=== PATIENT | male | born 1940 | race Caucasian/White ===

== ENCOUNTER → 2016-07-06 | Outpatient (CLI) | payer BC ==
[2016-07-06 12:49] LABS: HEMATOCRIT 42.4 % (42-52); MEAN CELL VOLUME 90.2 fL (80-100); MEAN CORPUSCULAR HEMOGLOBIN 31.3 pg (25-34); MEAN CORPUSCULAR HGB CONC 34.7 g/dl (32-36); MEAN PLATELET VOLUME 11.4 fL (7.4-10.4); PLATELET COUNT 198 K/uL (130-400); WHITE BLOOD COUNT 8.43 K/uL (4.8-10.8)
[2016-07-06 13:15] LABS: ALT/SGPT 23 U/L (12-78); BLOOD UREA NITROGEN 21 mg/dl (7-18); BUN/CREATININE RATIO 17.3 (10-20); CARBON DIOXIDE 27 mmol/L (21-32); CHLORIDE 104 mmol/L (98-107); CHOLESTEROL 110 mg/dl (0-200); GLUCOSE 108 mg/dl (70-99); POTASSIUM 3.6 mmol/L (3.5-5.1); SODIUM 141 mmol/L (136-145); TRIGLYCERIDES 135 mg/dl (0-150); VERY LOW DENSITY LIPOPROT CALC 27 mg/dl
[2016-07-06 13:25] LABS: ALB/GLOB RATIO 1.2 (0.9-2); ALKALINE PHOSPHATASE 75 U/L (45-117); AST/SGOT 16 U/L (15-37); CHOLESTEROL/HDL RATIO 2.4; HDL CHOLESTEROL 46 mg/dl; LDL CHOLESTEROL CALCULATED 37 mg/dl
[2016-07-06 13:31] LABS: ESTIMATED AVERAGE GLUCOSE 128 mg/dl; HA1C FLAG Normal (Normal)
== END | disposition home or self-care (01) ==
LOC: C.LABPVFM 09:21
PROVIDERS: ATTEND Family Medicine
DX: M15.4 Erosive (osteo)arthritis (principal); M25.561 Pain in right knee; Z79.899 Other long term (current) drug therapy; I10 Essential (primary) hypertension; E78.5 Hyperlipidemia, unspecified; R73.01 Impaired fasting glucose; H93.12 Tinnitus, left ear; R20.2 Paresthesia of skin

== ENCOUNTER → 2017-01-04 | Outpatient (CLI) | payer BC ==
[2017-01-04 17:25] LABS: BASO % 0.6 %; BASO ABS # 0.04 K/uL (0-0.2); COMPLETE YES; EOS % 2.5 %; HEMATOCRIT 43.1 % (42-52); IG% 0.1 %; LYMPH % 35.7 %; LYMPH ABS # 2.39 K/uL (1.2-3.4); MEAN CELL VOLUME 91.9 fL (80-100); MEAN CORPUSCULAR HEMOGLOBIN 30.9 pg (25-34); MEAN CORPUSCULAR HGB CONC 33.6 g/dl (32-36); MEAN PLATELET VOLUME 11.2 fL (7.4-10.4); MONO % 8.4 %; NEUT % 52.7 %; PLATELET COUNT 182 K/uL (130-400); RED BLOOD COUNT 4.69 M/uL (4.7-6.1)
[2017-01-04 18:22] LABS: ALT/SGPT 27 U/L (12-78); AST/SGOT 16 U/L (15-37); BLOOD UREA NITROGEN 23 mg/dl (7-18); BUN/CREATININE RATIO 20.9 (10-20); CALCIUM 8.9 mg/dl (8.5-10.1); CARBON DIOXIDE 28 mmol/L (21-32); CHLORIDE 106 mmol/L (98-107); CHOLESTEROL 108 mg/dl (0-200); GLUCOSE 111 mg/dl (70-99); POTASSIUM 3.3 mmol/L (3.5-5.1); SODIUM 140 mmol/L (136-145)
[2017-01-04 18:25] LABS: ALB/GLOB RATIO 1.3 (0.9-2); ALKALINE PHOSPHATASE 73 U/L (45-117); CHOLESTEROL/HDL RATIO 2.6; HDL CHOLESTEROL 41 mg/dl; LDL CHOLESTEROL CALCULATED 36 mg/dl; TRIGLYCERIDES 153 mg/dl (0-150); VERY LOW DENSITY LIPOPROT CALC 31 mg/dl
[2017-01-05 07:44] LABS: ESTIMATED AVERAGE GLUCOSE 126 mg/dl; HA1C FLAG Normal (Normal)
== END | disposition home or self-care (01) ==
LOC: C.LABPVFM 09:26
PROVIDERS: ATTEND Family Medicine
DX: I10 Essential (primary) hypertension (principal); E78.5 Hyperlipidemia, unspecified; R73.01 Impaired fasting glucose; M12.9 Arthropathy, unspecified

== ENCOUNTER → 2017-06-28 | Outpatient (CLI) | payer BC ==
[2017-06-28 12:28] LABS: BASO % 0.7 %; BASO ABS # 0.05 K/uL (0-0.2); EOS % 2.4 %; EOS ABS # 0.17 K/uL (0-0.5); HEMATOCRIT 42.1 % (42-52); HEMOGLOBIN 14.9 g/dL (14.0-18.0); IG# 0.03 K/uL (0.00-0.02); LYMPH % 31.5 %; LYMPH ABS # 2.24 K/uL (1.2-3.4); MEAN CELL VOLUME 91.5 fL (80-100); MEAN CORPUSCULAR HEMOGLOBIN 32.4 pg (25-34); MEAN CORPUSCULAR HGB CONC 35.4 g/dl (32-36); MEAN PLATELET VOLUME 11.2 fL (7.4-10.4); MONO % 9.4 %; MONO ABS # 0.67 K/uL (0.11-0.59); NEUT % 55.6 %; NEUT ABS # 3.96 K/uL (1.4-6.5); PLATELET COUNT 204 K/uL (130-400); RED CELL DISTRIBUTION WIDTH CV 13.3 % (11.5-14.5); RED CELL DISTRIBUTION WIDTH SD 44.2 fL (36.4-46.3); WHITE BLOOD COUNT 7.12 K/uL (4.8-10.8)
[2017-06-28 12:57] LABS: ALBUMIN 3.8 gm/dl (3.4-5.0); ALT/SGPT 25 U/L (12-78); BLOOD UREA NITROGEN 20 mg/dl (7-18); CALCIUM 9.4 mg/dl (8.5-10.1); CARBON DIOXIDE 27 mmol/L (21-32); CREATININE 1.16 mg/dl (0.60-1.40); GLUCOSE 106 mg/dl (70-99); POTASSIUM 3.4 mmol/L (3.5-5.1); SODIUM 138 mmol/L (136-145)
[2017-06-28 13:00] LABS: ALKALINE PHOSPHATASE 74 U/L (45-117); AST/SGOT 19 U/L (15-37); CHOLESTEROL 125 mg/dl (0-200); LDL CHOLESTEROL CALCULATED 53 mg/dl; TOTAL PROTEIN 7.2 gm/dl (6.4-8.2)
== END | disposition home or self-care (01) ==
LOC: C.LABPVFM 09:21
PROVIDERS: ATTEND Family Medicine
DX: Z51.81 Encounter for therapeutic drug level monitoring (principal); N40.1 Benign prostatic hyperplasia with lower urinary tract symptoms; I10 Essential (primary) hypertension; E78.5 Hyperlipidemia, unspecified; M15.4 Erosive (osteo)arthritis; M25.561 Pain in right knee; Z79.899 Other long term (current) drug therapy

== ENCOUNTER → 2017-09-26 | Outpatient (CLI) | payer BC | END | disposition home or self-care (01) | LOC: C.LABPVFM 17:55 | PROVIDERS: ATTEND Family Medicine | DX: R39.9 Unspecified symptoms and signs involving the genitourinary system (principal) ==

== ENCOUNTER 2020-07-29 05:38 | Observation (INO) ==
--- NOTE | 2020-07-26 16:30 | PAT Medication Instructions ---
Medication Instructions Date of Service July 26, 2020 Home Medications Medication Instructions Recorded cholecalciferol (vitamin D3) 25 1,000 units PO DAILY #30 cap 12/30/18 mcg (1,000 unit) capsule hydroxychloroquine 200 mg tablet 200 mg PO BID #180 tab 12/30/18 amoxicillin 500 mg capsule 2,000 mg PO ONCE #4 cap 03/24/19 potassium chloride 10 mEq See Rx Instructions .ROUTE 02/18/20 tablet,extended release .COMPLEX #180 each atorvastatin 10 mg tablet See Rx Instructions .ROUTE 03/17/20 .COMPLEX #90 tablet hydrochlorothiazide 12.5 mg tablet 12.5 mg PO DAILY #90 tab 04/28/20 oxycodone-acetaminophen 5 mg-325 1 tab PO Q4H PRN #30 tab 07/20/20 mg tablet multivitamin 1 tab PO QAM cholecalciferol (vitamin D3) 25 mcg (1,000 unit) capsule 1,000 units PO DAILY hydroxychloroquine 200 mg tablet 200 mg PO BID acetaminophen 500 mg tablet 1,000 mg PO Q8H PRN amoxicillin 500 mg capsule 2,000 mg PO ONCE potassium chloride 10 mEq tablet,extended release 1 tab BID atorvastatin 10 mg tablet 1 tab PO DAILY hydrochlorothiazide 12.5 mg tablet 12.5 mg PO DAILY oxycodone-acetaminophen 5 mg-325 mg tablet 1 tab PO Q4H PRN Continue as directed amoxicillin 500 mg capsule 2,000 mg PO ONCE ASK your prescriber and surgeon hydroxychloroquine 200 mg tablet 200 mg PO BID DO NOT take the morning of surgery multivitamin 1 tab PO QAM cholecalciferol (vitamin D3) 25 mcg (1,000 unit) capsule 1,000 units PO DAILY potassium chloride 10 mEq tablet,extended release 1 tab BID atorvastatin 10 mg tablet 1 tab PO DAILY hydrochlorothiazide 12.5 mg tablet 12.5 mg PO DAILY Take morning of surgery With a small sip of water, OTHERWISE NOTHING TO EAT OR DRINK AFTER MIDNIGHT: acetaminophen 500 mg tablet 1,000 mg PO Q8H PRN (if needed, may be taken up to four hours before surgery) oxycodone-acetaminophen 5 mg-325 mg tablet 1 tab PO Q4H PRN (if needed, may be taken up to four hours before surgery) Take evening before surgery acetaminophen 500 mg tablet 1,000 mg PO Q8H PRN (if needed) potassium chloride 10 mEq tablet,extended release 1 tab BID oxycodone-acetaminophen 5 mg-325 mg tablet 1 tab PO Q4H PRN (if needed) Other Notes If you have any questions please call us at [phone] or [phone] or [phone] or [phone]
--- NOTE | 2020-07-27 08:36 | Anesthesiology Consultation ---
Date of Service July 27, 2020 Assessment & Plan (1) Encounter for pre-operative examination: COVID Status: As of 07/27 assessment, patient denies travel to endemic area, known exposure/sick contacts, or symptoms of COVID19. Patient instructed that they and their household members must follow strict social distancing guidelines, wear a mask in public and avoid travel/events/gatherings prior to surgery. Preoperative COVID19 testing completed 07/26--results NEGATIVE. Patient made aware to self-isolate as much as possible between COVID testing and surgery. Chart Review Chart Review: Acceptable Risk for Surgery and Patient seen in Pre Admission Testing Teaching & Discussion Instructed NPO after midnight before surgery, except medications with 15 cc of water. Medication instructions provided according to the PAT guidelines. History Surgery Operation Date: 07/29/20 07:00 Proposed Procedures p C4-C5 Anterior Cervical Discectomy and Fusion, Allograft/Autograft, Spinal Cord Monitoring (MEP, SSEP, EMG, Vocal Cord Monitoring) - Attila Corrales MD Height/Weight Height: 5 ft 9 in Weight: 96.9 kg Allergies Allergy/AdvReac Type Severity Reaction Status Date / Time lisinopril Allergy Mild cough Verified 07/26/20 12:29 Medications Home Medications Medication Instructions Recorded Confirmed Last Taken multivitamin 1 tab PO QAM 12/10/18 07/26/20 Unknown cholecalciferol (vitamin D3) 25 1,000 units PO DAILY #30 cap 12/30/18 07/26/20 Unknown mcg (1,000 unit) capsule hydroxychloroquine 200 mg tablet 200 mg PO BID #180 tab 12/30/18 07/26/20 Unknown acetaminophen 500 mg tablet 1,000 mg PO Q8H PRN tab 01/08/19 07/26/20 Unknown amoxicillin 500 mg capsule 2,000 mg PO ONCE #4 cap 03/24/19 07/26/20 Unknown potassium chloride 10 mEq See Rx Instructions .ROUTE 02/18/20 07/26/20 Unknown tablet,extended release .COMPLEX #180 each atorvastatin 10 mg tablet See Rx Instructions .ROUTE 03/17/20 07/26/20 Unknown .COMPLEX #90 tablet hydrochlorothiazide 12.5 mg tablet 12.5 mg PO DAILY #90 tab 04/28/20 07/26/20 Unknown oxycodone-acetaminophen 5 mg-325 1 tab PO Q4H PRN #30 tab 07/20/20 07/26/20 Unknown mg tablet Past Medical History Medical History (Updated 07/27/20 @ 09:31 by Colt Vicente) Erosive (osteo)arthritis Following with Dr. Castanon ([facility] rheum), on Plaquenil. Hearing deficit History of asthma A CHILD History of kidney stones Hx of migraines Hyperlipidemia Hypertension Polyneuropathy Exercise / Class Metabolic Activity II 4-5 Yardwork/Stairs/Walk up hill Past Family History Family History Mother Diabetes Cardiac disorder Hypertension Family history of diabetes mellitus Father Cancer brain Sister Cancer Family history of diabetes mellitus Aunt Breast cancer Family/Other Ovarian cancer niece Grandfather Myocardial infarction Other No family history of adverse response to anesthesia Denies family history of Prostate cancer Colorectal cancer Past Surgical History Surgical History H/O knee surgery X 2 (RT KNEE) History of colonoscopy History of cystoscopy WITH STENT FOR KIDNEY STONE History of hernia repair History of tonsillectomy History of tooth extraction History of total knee replacement RT Past Anesthesia History No Hx of Anesthesia Complications and No Family Hx of Anesthesia Complications History of PONV No Hx of PONV and No Hx of Motion Sickness STOP BANG Total 5 Social History Smoking Status: Never smoker Do You Dip or Chew Tobacco: No Hx Alcohol Use: Yes alcohol intake frequency: holidays/special occasions only (once a year if that) Hx Substance Use: No substance use type: does not use Review of Systems Pt denies any recent chest pain, shortness of breath, palpitations, cough, fever, URI, or uncontrolled acid reflux (just gets occasionally). Physical Exam Vital Signs BP: 144/90 P: 82bpm SPO2: 98% RA T: 98.0 F R: 16 ENMT Mouth: + dental restorations (implant upper L canine and lower R molars); no loose teeth Thyromental Distance: > or= 3.5 Finger Breadths Mallampati Class: II Neck normal visual inspection and + limited neck extension Respiratory normal respiratory effort, lungs clear to auscultation Cardiovascular RRR, no murmur, no edema Vessels: no carotid bruit Testing Laboratory Results 07/27/20 08:03 07/27/20 08:03 Blood Type B Positive 07/27/20 08:03 Antibody Screen NEGATIVE 07/27/20 08:03 Electrocardiogram Date: 07/27/20 Findings: + NSR @ (73bpm) *unconfirmed Chest X-Ray Date: 07/27/20 Findings: + NAD
--- NOTE | 2020-07-27 09:11 | XRay Report ---
XR chest Pre-admission PA/Lat HISTORY: 79 years-old Male pat preoperative exam. No acute chest complaints COMPARISON: Chest radiograph 11/11/2017 TECHNIQUE: PA and lateral views of the chest FINDINGS: Cardiomediastinal and hilar silhouettes are within normal limits. Calcified plaque of the thoracic ao rta. No pneumothorax, pleural effusion, airspace consolidation or overt pulmonary edema. Minimal left lung base atelectasis/scarring with blunting of the lateral costophrenic angles. Degenerative change s of the shoulders and spine. IMPRESSION: No acute process. ACT 112: Negative or not required by law. The above report was generated using voice recognition software. It may contain grammatical, syntax o r spelling errors. Electronically signed by: Dandre Mendoza M.D. 07/27/2020 9:09 AM
[2020-07-27 11:00] LABS: Basophils # (auto) 0.02 K/uL (0-0.2); Basophils % (auto) 0.2 %; Eosinophils # (auto) 0.25 K/uL (0-0.5); Eosinophils % (auto) 2.6 %; Hematocrit (blood only) 41.8 % (42-52); Hemoglobin 14.1 g/dL (14.0-18.0); Immature Granulocytes # (auto) 0.04 K/uL (0.00-0.02); Immature Granulocytes % (auto) 0.4 %; Lymphocytes # (auto) 1.85 K/uL (1.2-3.4); Lymphocytes % (auto) 19.2 %; Mean Corpuscular Hemoglobin 31.5 pg (25-34); Mean Corpuscular Hgb Conc 33.7 g/dL (32-36); Mean Corpuscular Volume 93.3 fL (80-100); Mean Platelet Volume 10.5 fL (7.4-10.4); Monocytes # (auto) 0.74 K/uL (0.11-0.59); Monocytes % (auto) 7.7 %; Neutrophils # (auto) 6.75 K/uL (1.4-6.5); Neutrophils % (auto) 69.9 %; Platelet Count 191 K/uL (130-400); RDW Coefficient of Variation 13.8 % (11.5-14.5); Red Blood Count 4.48 M/uL (4.7-6.1); White Blood Count 9.65 K/uL (4.8-10.8)
[2020-07-27 11:18] LABS: Calcium 9.6 mg/dl (8.5-10.1); Creatinine Clr Calc Pharmacy 58.7 ml/min; Est GFR (African American) 67.4; Est GFR (Non-African American) 58.2
--- NOTE | 2020-07-27 15:25 | Electrocardiogram Report ---
Test Reason : Blood Pressure : / mmHG Vent. Rate : 073 BPM Atrial Rate : 073 BPM P-R Int : 180 ms QRS Dur : 098 ms QT Int : 388 ms P-R-T Axes : 068 037 064 degrees QTc Int : 427 ms Normal sinus rhythm Low voltage QRS Borderline ECG When compared with ECG of 11-NOV-2017 09:13, No significant change was found Confirmed by Blade Jerry ([id number]) on 07/27/2020 3:24:48 PM Referred By: Attila Corrales Confirmed By:Blade Jerry
[2020-07-29] MEDS ORDERED: ceFAZolin 2000MG 2,000 MG/15 ML SYR IV SCH (06:00)
[2020-07-29] MEDS ORDERED: LR 60ML/HR IV SCH (06:00)
[2020-07-29] MEDS ORDERED: LR 15ML/HR IV SCH (06:00)
[2020-07-29] MEDS ORDERED: PROPOFOL IV EMULSION 10 MG/ML 20 ML VIAL IV ONE ×8 (06:48→09:48)
[2020-07-29] MEDS ORDERED: fentaNYL citrate 100 MCG/2 ML VIAL ONE (06:51)
[2020-07-29] MEDS ORDERED: REMIFENTANIL HCL 1 MG VIAL ONE ×3 (06:57→09:47)
--- NOTE | 2020-07-29 06:59 | History & Physical Bridge Note ---
Date of Service July 29, 2020 History & Physical Bridge Note I have examined the patient, reviewed the History & Physical and in the interval since the performance of the History & Physical I have noted the following changes of clinical significance: no changes noted
[2020-07-29] MEDS ORDERED: GELATIN SPONGE 12-7MM ONE (07:08)
[2020-07-29] MEDS ORDERED: THROMBIN 5000 UNITS KIT ONE (07:09)
[2020-07-29] MEDS ORDERED: HYDROmorphone INJ 1 MG/ML SYRINGE IV PRN (07:14)
[2020-07-29] MEDS ORDERED: ePHEDrine sulfate 50 MG/ML AMP IV PRN (07:14)
[2020-07-29] MEDS ORDERED: ATROPINE SULFATE 0.1 MG/ML 10ML SYR IV PRN (07:14)
[2020-07-29] MEDS ORDERED: ONDANSETRON INJ 2 MG/ML 2 ML VIAL IV PRN ×2 (07:14→12:50)
[2020-07-29] MEDS ORDERED: ONDANSETRON INJ 2 MG/ML 2 ML VIAL ONE (08:35)
[2020-07-29] MEDS ORDERED: PHENYLEPHRINE 100MCG/ML 5ML SYR ONE (08:54)
[2020-07-29] MEDS ORDERED: FLOSEAL HEMOSTATIC MATRIX 10ML TOP ONE (10:26)
--- NOTE | 2020-07-29 11:20 | Post Operative Brief Note ---
PG Immediate Post Op with CF Date of Surgery July 29, 2020 Pre & Post Diagnosis Operation Date: 07/29/20 07:15 Pre-Op Diagnosis: Cervical Radiculopathy Post-Op Diagnosis: Cervical Radiculopathy I identified the patient and participated in the time-out.: Yes Procedure Operation Date: 07/29/20 07:15 Actual Procedures p C4-C5 Anterior Cervical Discectomy and Fusion, Allograft, Spinal Cord Monitoring - Attila Corrales MD Surgeon Attila Corrales MD [place] Machine Operator Arpan Robles PA-C Estimated Blood Loss 50 Findings Consistent with Post-Op Diagnosis Specimens Specimen Description: None per surgeon Drains Remington-Gallardo Drain (10Fr)
[2020-07-29] MEDS: fentaNYL citrate 100 MCG/2 ML VIAL IV PRN ×2 (11:34→11:52)
--- NOTE | 2020-07-29 11:37 | XRay Report ---
XR cervical spine 2V HISTORY: 79 years-old Male X-TABLE LATERALS TAKEN IN OR chronic neck pain COMPARISON: CT cervical spine 07/27/2020 TECHNIQUE: 3 lateral views of the cervical spine FINDINGS: Endotracheal tube. Orthopedic hardware and spine is noted within the soft tissues anterior to the C4- C5 disc space. The last image demonstrates anterior plate and screw fusion with discectomy changes at C4-C5. The hardware appears intact. Alignment is satisfactory. No acute fracture or retained foreign body on the last image. The C6 and C7 segments are obscured by the patient's shoulders. IMPRESSION: Anterior plate and screw fusion with discectomy changes at C4-C5. ACT 112: Negative or not required by law. The above report was generated using voice recognition software. It may contain grammatical, syntax o r spelling errors. Electronically signed by: Dandre Mendoza M.D. 07/29/2020 11:36 AM
[2020-07-29] MEDS ORDERED: oxyCODONE/ACETAMINOPHEN 5mg/325mg TAB PO PRN (12:50)
[2020-07-29] MEDS ORDERED: hydrOXYzine HCl 25 MG TAB PO PRN (12:50)
[2020-07-29] MEDS ORDERED: LORazepam 0.5 MG TAB PO PRN (12:50)
[2020-07-29] MEDS ORDERED: DO NOT ADMINISTER PNEUMOCOCCAL VACCINE PRN (12:50)
[2020-07-29] MEDS ORDERED: ONDANSETRON 4 MG OD TAB PO PRN (12:50)
[2020-07-29] MEDS ORDERED: dexAMETHasone 8 MG in SYRINGE 0 ML IV PRN (12:50)
[2020-07-29] MEDS ORDERED: RACEPINEPHRINE 2.25% NEBU SOLN 0.5 ML VIAL INH PRN (12:50)
[2020-07-29] MEDS ORDERED: diphenhydrAMINE Capsule 25 MG CAP PO PRN (12:50)
[2020-07-29] MEDS ORDERED: METOCLOPRAMIDE HCL INJ 5 MG/ML 2 ML VIAL IV PRN (12:50)
[2020-07-29] MEDS ORDERED: ALUMINUM/MAGNESIUM SUSP 30 ML UDC PO PRN (12:50)
[2020-07-29] MEDS ORDERED: FAMOTIDINE 20 MG TAB PO PRN (12:50)
[2020-07-29] MEDS ORDERED: MAGNESIUM HYDROXIDE SUSP 30 ML UDC PO PRN (12:50)
[2020-07-29] MEDS ORDERED: NALOXONE HCL 0.4 MG/1 ML VIAL/CARP IV PRN (12:50)
[2020-07-29] MEDS ORDERED: DO NOT ADMINISTER FLU VACCINE PRN (12:50)
[2020-07-29] MEDS ORDERED: LORazepam 0.5 MG/1 ML VIAL IV PRN (12:50)
[2020-07-29] MEDS ORDERED: SOD PHOSPHATE/SOD BIPHOSPHATE ENEMA 132 ML BTL PR PRN (12:50)
[2020-07-29] MEDS ORDERED: PROMETHAZINE HCL 12.5 MG in SODIUM CHLORIDE 0.9% 50 ML IV PRN (12:50)
[2020-07-29] MEDS ORDERED: ACETAMINOPHEN 500 MG TAB PO PRN (13:00)
--- NOTE | 2020-07-29 13:47 | Anesthesiology Progress Note ---
Date of Service July 29, 2020 Anesthesia Post Procedure Vital Signs Vital Signs: Temp Pulse Pulse Resp BP Pulse Ox 07/29/20 12:50 81 16 100 07/29/20 12:30 79 18 137/88 93 07/29/20 12:20 36.1 C L 79 20 134/82 96 07/29/20 12:10 82 18 132/81 94 07/29/20 12:00 78 20 136/91 94 07/29/20 11:50 77 18 145/90 H 95 07/29/20 11:40 78 15 148/95 H 95 07/29/20 11:30 79 18 148/96 H 98 07/29/20 11:20 82 14 152/89 H 95 07/29/20 11:10 86 18 150/87 H 94 07/29/20 11:08 36.2 C L 86 20 154/102 H 94 07/29/20 06:10 36.9 C 92 H 18 150/103 H 100 Pain Intensity Left Neck: Pain Intensity: 7 Right Neck: Pain Intensity: 8 Transfer of Care Handoff Completed per policy Notes Mental Status: alert / awake / arousable and participated in evaluation Patient Amnestic to Procedure: Yes Nausea / Vomiting: adequately controlled Pain: adequately controlled Airway Patency, RR, SpO2: stable & adequate BP & HR: stable & adequate Hydration State: stable & adequate Anesthetic Complications: no major complications apparent and Pt Satisfied with anesthetic care
[2020-07-29] MEDS: LACTATED RINGER'S 1,000 ML IV SCH ×2 (14:35→23:31)
[2020-07-29] MEDS: CYCLOBENZAPRINE HCL 10 MG TAB PO SCH ×2 (14:45→20:51)
[2020-07-29] MEDS: ATORVASTATIN 10 MG TAB PO SCH (15:24)
[2020-07-29] MEDS: POTASSIUM CHLORIDE 10 MEQ TABCR PO SCH ×2 (15:24→20:51)
--- NOTE | 2020-07-29 15:32 | Hospitalist Consultation ---
Date of Consultation July 29, 2020 Assessment & Plan (1) Cervical stenosis of spine: S/p C4-C5 Anterior Cervical Discectomy and Fusion, Allograft, Spinal Cord Monitoring with Dr. Corrales on 07/29/2020. - Post-op care per primary team - DVT ppx per primary team (2) Benign hypertension: BP presently 150/90. - Continue home HCTZ w/ home potassium supplement - No need to acutely control blood pressure as long as it is < 190/110 in the hospital or he is experiencing symptoms thought to be due to HTN such as chest pain, shortness of breath, headache, vision changes. (3) Rheumatoid arthritis: Follows with [facility] rheumatology for erosive arthritis (possibly rheumatoid arthritis?). - Continue home hydroxychloroquine (4) Dyslipidemia: - Continue statin (5) DVT prophylaxis: SCDs - Defer chemoprophylaxis to primary team History of Present Illness Attending Physician: Attila Corrales MD History of Present Illness 79yo M w/ hx of cervical stenosis who presents as a routine medical consult after C4-C5 Anterior Cervical Discectomy and Fusion, Allograft, Spinal Cord Monitoring with Dr. Corrales on 07/29/2020. Patient was having trouble holding his left arm up along with left arm/shoulder pain. Today, he is having no complaints. Feeling well after surgery. Minimal neck pain, but is having some pain in his throat from the intubation. Allergies Allergy/AdvReac Type Severity Reaction Status Date / Time lisinopril Allergy Mild cough Verified 07/29/20 06:05 Home Medications Medication Instructions Recorded Confirmed Type multivitamin 1 tab PO QAM 12/10/18 07/29/20 History cholecalciferol (vitamin D3) 25 1,000 units PO DAILY #30 cap 12/30/18 07/29/20 Rx mcg (1,000 unit) capsule hydroxychloroquine 200 mg tablet 200 mg PO BID #180 tab 12/30/18 07/29/20 Rx acetaminophen 500 mg tablet 1,000 mg PO Q8H PRN tab 01/08/19 07/29/20 History amoxicillin 500 mg capsule 2,000 mg PO ONCE #4 cap 03/24/19 07/26/20 Rx potassium chloride 10 mEq See Rx Instructions .ROUTE 02/18/20 07/29/20 Rx tablet,extended release .COMPLEX #180 each atorvastatin 10 mg tablet See Rx Instructions .ROUTE 03/17/20 07/29/20 Rx .COMPLEX #90 tablet hydrochlorothiazide 12.5 mg tablet 12.5 mg PO DAILY #90 tab 04/28/20 07/29/20 Rx oxycodone-acetaminophen 5 mg-325 1 tab PO Q4H PRN #30 tab 07/20/20 07/29/20 Rx mg tablet Patient History Medical History Erosive (osteo)arthritis Following with Dr. Castanon ([facility] rheum), on Plaquenil. Hearing deficit History of asthma A CHILD History of kidney stones Hx of migraines Hyperlipidemia Hypertension Polyneuropathy Surgical History H/O knee surgery X 2 (RT KNEE) History of colonoscopy History of cystoscopy WITH STENT FOR KIDNEY STONE History of hernia repair History of tonsillectomy History of tooth extraction History of total knee replacement RT Family History Mother Diabetes Cardiac disorder Hypertension Family history of diabetes mellitus Father Cancer brain Sister Cancer Family history of diabetes mellitus Aunt Breast cancer Family/Other Ovarian cancer niece Grandfather Myocardial infarction Other No family history of adverse response to anesthesia Denies family history of Prostate cancer Colorectal cancer Social History Smoking Status: Never smoker Second Hand Exposure: Yes ( A CHILD); Do You Dip or Chew Tobacco: No; Hx Alcohol Use: No Hx Substance Use: No Preferred Language: Hungarian Communication Ability: Effective Caregiver Services Home Required: No Beliefs That Will Affect Care: None marital status: Current Living Situation: Spouse current occupational status: retired Feels Safe at Home: Yes Safety Concerns: Feels Safe At This Time Dental Care, Regularly: Yes Seatbelt Use: always Sunscreen Use: Yes Assistive Devices: Glasses Review of Systems Review of Systems: All systems reviewed & are unremarkable except as noted in HPI & below Physical Exam Constitutional: WD/WN, vitals as above Eyes: EOM intact bilaterally; no conjunctival abnormality ENMT: external ear and nose normal, oropharynx normal Neck: trachea midline, no thyromegaly normal visual inspection (In neck brace with drain (no drainage)) Respiratory: normal respiratory effort, lungs clear to auscultation no respiratory distress Cardiovascular: RRR, no murmur, no edema Gastrointestinal (Abdomen): Inspection/Auscultation: abdomen normal to inspection; abdomen not distended Musculoskeletal: no cyanosis or clubbing, extremities motor strength 5/5 Skin: no rashes, warm and dry Neurologic: moves all extremities and awake Psychiatric: Orientation: alert, oriented to person and cooperative Results & Data Results & Data ([facility]) Vital Signs (Past 12 Hours) Vital Signs Temp Pulse Pulse Resp BP Pulse Ox Pulse Ox 07/29/20 14:45 37.2 C 90 17 152/91 H 99 07/29/20 14:40 37.3 C 86 16 137/81 100 07/29/20 13:45 37.1 C 104 H 18 153/84 H 100 07/29/20 13:13 37.1 C 86 16 147/89 H 100 07/29/20 12:50 81 16 100 07/29/20 12:45 37.0 C 82 16 143/82 H 93 93 07/29/20 12:30 79 18 137/88 93 07/29/20 12:20 36.1 C L 79 20 134/82 96 07/29/20 12:10 82 18 132/81 94 07/29/20 12:00 78 20 136/91 94 07/29/20 11:50 77 18 145/90 H 95 07/29/20 11:40 78 15 148/95 H 95 07/29/20 11:30 79 18 148/96 H 98 07/29/20 11:20 82 14 152/89 H 95 07/29/20 11:10 86 18 150/87 H 94 07/29/20 11:08 36.2 C L 86 20 154/102 H 94 07/29/20 06:10 36.9 C 92 H 18 150/103 H 100 PG Care Time/CCT Total # of Minutes Spent Total Time Spent with Patient: Total time spent is greater than 50% in coordination of care (as documented) at patient's floor/unit and/or counseling patient: Coding Level of Care Code 30270 Office/OBS Consult Lvl 3 Diagnoses Cervical stenosis of spine M48.02 Benign hypertension I10 Rheumatoid arthritis M06.9 Dyslipidemia E78.5 DVT prophylaxis Z29.9
[2020-07-29] MEDS: HYDROmorphone INJ 0.5 MG/0.5 ML SYR IV PRN ×2 (15:41→21:47)
[2020-07-29] MEDS: ceFAZolin 2000MG 2,000 MG/15 ML SYR IV SCH ×2 (15:46→23:20)
--- NOTE | 2020-07-29 20:13 | Operative Report ---
PG Post Operative Report Pre & Post Diagnosis Operation Date: 07/29/20 07:15 Pre-Op Diagnosis: Cervical Radiculopathy Post-Op Diagnosis: Cervical Radiculopathy I identified the patient and participated in the time-out.: Yes Procedure Procedure: 1. Anterior Cervical Discectomy and Fusion C4-5 2. Anterior Cervical Instrumentation same level 3. Anterior Interbody Device same level 4. Local Autograft for anterior cervical fusion 5. Allograft, morselized (DBM) Surgeon Attila Corrales MD Operations Professional Arpan Robles PA-C Estimated Blood Loss 50 Findings Consistent with Post-Op Diagnosis Specimens none Description of Procedure Implants: 1. K2M [place] Cervical Interbody - 7deg, 13x16, 7mm 2. K2M [place] anterior cervical plate 20mm with 4.0x16mm screws (x4) 3. [employer] [place] DBM Drains: 1. AMADA drain x 1 (10 German) Indications: Patient presented to my clinic as same-day referral from Dr. Fabián Hicks with severe C5 radiculopathy with motor weakness and MRI imaging confirming a left C4-5 lateral disc herniation. Given the severity of neurological deficit, informed consent was obtained for the procedure and the procedure was completed 3 days after original presentation to my clinic. Description of procedure: Patient was brought to the operating room and underwent general anesthesia. Patient was placed supine on the operating table with neck in gentle extension. Face, eyes, bony prominences, and peripheral nerves were well protected. Anterior cervical region was prepped and draped in standard fashion. A time-out was performed and documented. Anterior Solorio-Farah type approach was made on the right side. The carotid artery was palpated and retracted laterally. The anterior cervical spine was visualized and a localization needle was placed in the affected disc space and confirmed with lateral portable x-ray. The longus coli was elevated bilaterally and a self retaining retractor placed. Anterior discectomy was performed with disc knife, ronguers, and currettes. Anterior osteophytes were removed and saved for local autograft. [place] type distraction pins were placed into the vertebral body above and below the disc. Gentle distraction was applied. Posterior discectomy with decompression of the central spinal cord and bilateral foraminal areas was performed with high speed lucinda, curettes, and ronguers. Once the decompression was judged to be adequate, attention was turned to the preparation of the interspace for fusion. A lucinda and currettes were used to prepare endplates for fusion with flat, bleeding surfaces. A trial sizer was used to size the interbody device. The interbody device was packed with local bone and DBM allograft. The interbody device was placed in the interspace and the distraction pins were removed. Bone wax was used to control bleeding from the pin sites. An appropriate size anterior ce rvical plate was selected. The screw sites were pre-drilled. The plate was secured with two screws into the vertebral body above and two into the body below. The self retaining retractor was removed and the wound checked for hemostasis. Lateral Portal x-ray imaging confirmed the correct surgical level and implant positions. The wound was irrigated. There was good hemostasis. A AMADA drain was inserted below the incision. The platsyma layer was closed with 2- 0 vicryl and the skin with 3-0 monocryl. Steristrips, and a sterile dressing were applied. The patient was awakened and taken to the recovery room in stable condition. There were no intraoperative complications noted. Sponge and needle counts were correct x2 at the conclusion of the case. I attest to the content of the Intraoperative Record and any orders documented therein. Any exceptions are noted below.
[2020-07-29] MEDS: ACETAMINOPHEN 1,000 MG/100 ML VIAL IV PRN (20:19)
[2020-07-29] MEDS: CHLORASEPTIC 1.4% SOLN 180 ML BTL MT PRN ×2 (20:19→23:20)
[2020-07-29] MEDS: GABAPENTIN 300 MG CAP PO SCH (20:51)
[2020-07-29] MEDS: DOCUSATE SODIUM/SENNA 50/8.6MG TAB PO SCH (20:52)
[2020-07-29] MEDS: HYDROXYCHLOROQUINE SULFATE 200 MG TAB PO SCH (20:52)
[2020-07-30] MEDS: CHLORASEPTIC 1.4% SOLN 180 ML BTL MT PRN ×5 (01:55→16:19)
[2020-07-30] MEDS: oxyCODONE HCL IR 5 MG TAB (IMMEDIATE RELEASE) PO PRN ×2 (02:01→07:38)
[2020-07-30] MEDS: HYDROmorphone INJ 0.5 MG/0.5 ML SYR IV PRN (05:44)
[2020-07-30 06:45] LABS: Basophils # (auto) 0.02 K/uL (0-0.2); Basophils % (auto) 0.2 %; Eosinophils # (auto) 0.18 K/uL (0-0.5); Eosinophils % (auto) 1.8 %; Hematocrit (blood only) 38.2 % (42-52); Hemoglobin 12.7 g/dL (14.0-18.0); Immature Granulocytes # (auto) 0.02 K/uL (0.00-0.02); Immature Granulocytes % (auto) 0.2 %; Lymphocytes # (auto) 1.74 K/uL (1.2-3.4); Lymphocytes % (auto) 17.5 %; Mean Corpuscular Hemoglobin 30.8 pg (25-34); Mean Corpuscular Hgb Conc 33.2 g/dL (32-36); Mean Corpuscular Volume 92.7 fL (80-100); Mean Platelet Volume 9.7 fL (7.4-10.4); Monocytes # (auto) 1.29 K/uL (0.11-0.59); Neutrophils # (auto) 6.71 K/uL (1.4-6.5); Neutrophils % (auto) 67.3 %; Platelet Count 149 K/uL (130-400); RDW Coefficient of Variation 14.1 % (11.5-14.5); RDW Standard Deviation 47.6 fL (36.4-46.3); Red Blood Count 4.12 M/uL (4.7-6.1); White Blood Count 9.96 K/uL (4.8-10.8)
[2020-07-30 07:14] LABS: BUN Creatinine Ratio 17.5 (10-20); Calcium 8.8 mg/dl (8.5-10.1); Creatinine Clr Calc Pharmacy 65.1 ml/min; Est GFR (African American) 76.7; Est GFR (Non-African American) 66.1; Potassium 3.6 mmol/L (3.5-5.1)
--- NOTE | 2020-07-30 09:12 | XRay Report ---
XR cervical spine 2 or 3V CLINICAL HISTORY: post-op ACDF C4-5 COMPARISON STUDY: No previous studies for comparison. FINDINGS: There is prevertebral soft tissue edema. There are postsurgical changes of an anterior cerv ical discectomy and fusion at the C4-5 level. There is a mild superior endplate C6 compression deform ity. A surgical drain is visualized. IMPRESSION: 1. Postsurgical changes of a anterior cervical discectomy and fusion at the C4-5 level 2. Prevertebral soft tissue edema ACT 112: Negative or not required by law. Electronically signed by: Keon Morales M.D. 07/30/2020 9:10 AM
--- NOTE | 2020-07-30 09:59 | Orthopedic Progress Note ---
Date of Service July 30, 2020 Assessment & Plan (1) Status post spinal surgery: drain to be removed today dexamathasone IV to reduce dysphagia progress oral intake as able d/c home likely tomorrow Admission and Anticipated Discharge Date Admission Date: July 29, 2020 Subjective no new numbness/weakness, improved strength left elbow flexion reduced pain around left shoulder some hoarseness noted dysphagia, tolerating clear fluids, improved since last night as per patient Review of Systems Review of Systems: All systems reviewed & are unremarkable except as noted in HPI & below Physical Exam Physical Exam: dressing: clean, dry intact drain: 0 cc/8hr neuro: grossly intact motor upper extremity and lower extremity except left C5 4+/5 (improved from pre-op) biceps, deltoid 2/5 (unchanged) light touch intact upper extremity and lower extremity neck soft, non-distended Results & Data ([facility]) Vital Signs (Past 12 Hours) Vital Signs Temp Pulse Pulse Pulse Resp BP BP 07/30/20 09:10 36.5 C 92 H 18 133/84 07/30/20 08:02 66 20 07/30/20 06:58 37 C 80 19 154/83 H 07/30/20 05:37 37.0 C 81 20 132/79 07/30/20 03:20 79 07/30/20 02:44 83 18 07/30/20 01:36 76 129/74 07/29/20 23:17 37.1 C 78 18 118/69 07/29/20 22:38 74 16 Pulse Ox 07/30/20 09:10 96 07/30/20 08:02 95 07/30/20 06:58 96 07/30/20 05:37 98 07/30/20 03:20 95 07/30/20 02:44 95 07/30/20 01:36 96 07/29/20 23:17 97 07/29/20 22:38 93 Diagnostic Findings x-ray cervical spine upright today - acceptable alignment of hardware PG Care Time/CCT Total # of Minutes Spent Total Time Spent with Patient: Total time spent is greater than 50% in coordination of care (as documented) at patient's floor/unit and/or counseling patient: Coding Level of Care Code None Diagnoses Status post spinal surgery Z98.890
[2020-07-30] MEDS: dexAMETHasone 8 MG in SYRINGE 0 ML IV SCH ×2 (10:29→18:45)
[2020-07-30] MEDS: HYDROXYCHLOROQUINE SULFATE 200 MG TAB PO SCH ×2 (12:20→21:39)
[2020-07-30] MEDS: CHOLECALCIFEROL 1,000 UNITS 25 MCG TAB PO SCH (12:20)
[2020-07-30] MEDS: GABAPENTIN 300 MG CAP PO SCH ×2 (12:20→21:39)
[2020-07-30] MEDS: hydroCHLOROthiazide 25 MG TAB PO SCH (12:20)
[2020-07-30] MEDS: MULTIVITAMIN TAB PO SCH (12:21)
[2020-07-30] MEDS: POTASSIUM CHLORIDE 10 MEQ TABCR PO SCH ×2 (12:22→21:39)
[2020-07-30] MEDS: ATORVASTATIN 10 MG TAB PO SCH (12:22)
[2020-07-30] MEDS: CYCLOBENZAPRINE HCL 10 MG TAB PO SCH ×3 (12:22→21:39)
[2020-07-30] MEDS: POLYETHYLENE (MIRALAX) 17 GM PACK PO SCH ×5 (12:35→23:55)
[2020-07-30] MEDS: LACTATED RINGER'S 1,000 ML IV SCH ×2 (13:28→20:31)
--- NOTE | 2020-07-30 17:16 | Hospitalist Progress Note ---
Date of Service July 30, 2020 Assessment & Plan (1) Cervical stenosis of spine: S/p C4-C5 Anterior Cervical Discectomy and Fusion, Allograft, Spinal Cord Monitoring with Dr. Corrales on 07/29/2020. - Post-op care per primary team - DVT ppx per primary team - Doing well today. Drain removed. No major pain complaints. May go home today or tomorrow. With some expected acute blood loss anemia from surgery. Will give IV iron x 2 doses. (2) Benign hypertension: BP presently 140/85. - Continue home HCTZ w/ home potassium supplement - No need to acutely control blood pressure as long as it is < 190/110 in the hospital or he is experiencing symptoms thought to be due to HTN such as chest pain, shortness of breath, headache, vision changes. (3) Rheumatoid arthritis: Follows with [facility] rheumatology for erosive arthritis (possibly rheumatoid arthritis?). - Continue home hydroxychloroquine (4) Dyslipidemia: - Continue statin (5) DVT prophylaxis: SCDs - Defer chemoprophylaxis to primary team Given medical stability, Hospital Medicine team will sign off. Please re-consult with any questions or concerns. Thank you for letting us assist in the care of this patient! Admission and Anticipated Discharge Date Admission Date: July 29, 2020 Subjective Doing well today. Drain removed. Reports no fevers/chills, chest pain, shortness of breath, abdominal pain, nausea, or vomiting. Physical Exam Constitutional: WD/WN, vitals as above Eyes: EOM intact bilaterally; no conjunctival abnormality ENMT: external ear and nose normal, oropharynx normal Neck: trachea midline, no thyromegaly normal visual inspection (In neck brace with drain (no drainage)) Respiratory: normal respiratory effort, lungs clear to auscultation no respiratory distress Cardiovascular: RRR, no murmur, no edema Gastrointestinal (Abdomen): Inspection/Auscultation: abdomen normal to inspection; abdomen not distended Musculoskeletal: no cyanosis or clubbing, extremities motor strength 5/5 Skin: no rashes, warm and dry Neurologic: moves all extremities and awake Psychiatric: Orientation: alert, oriented to person and cooperative Results & Data Results & Data ([facility]) Vital Signs (Past 12 Hours) Vital Signs Temp Pulse Pulse Pulse Resp BP BP 07/30/20 15:28 78 18 07/30/20 13:33 07/30/20 13:10 36.8 C 90 16 138/85 07/30/20 11:10 37.2 C 88 18 148/80 H 07/30/20 09:10 36.5 C 92 H 18 133/84 07/30/20 08:02 66 20 07/30/20 06:58 37 C 80 19 154/83 H 07/30/20 05:37 37.0 C 81 20 132/79 Pulse Ox 07/30/20 15:28 95 07/30/20 13:33 96 07/30/20 13:10 97 07/30/20 11:10 96 07/30/20 09:10 96 07/30/20 08:02 95 07/30/20 06:58 96 07/30/20 05:37 98 PG Care Time/CCT Total # of Minutes Spent Total Time Spent with Patient: Total time spent is greater than 50% in coordination of care (as documented) at patient's floor/unit and/or counseling patient: Coding Level of Care Code 00352 Subseq Hosp Care Lvl 2 Diagnoses Cervical stenosis of spine M48.02 Benign hypertension I10 Rheumatoid arthritis M06.9 Dyslipidemia E78.5 DVT prophylaxis Z29.9
--- NOTE | 2020-07-30 18:20 | XRay Report ---
XR cervical spine 1V CLINICAL HISTORY: Neck pain status post trauma COMPARISON STUDY: Earlier in the day FINDINGS: 2 crosstable lateral views of cervical spine are provided for interpretation. There are pos tsurgical changes of C4-5 anterior discectomy and fusion. The C5 vertebra is not visualized in its en tirety. The C6 and C7 vertebra are not visualized.. There is moderately extensive prevertebral soft t issue edema IMPRESSION: 1. Persistent extensive prevertebral soft tissue edema 2. Postsurgical changes of a C4-5 anterior cervical discectomy and fusion. 3. The C5 vertebra is only partially visualized on this study. The C6 and C7 vertebra are not visuali zed. ACT 112: Negative or not required by law. Electronically signed by: Keon Morales M.D. 07/30/2020 6:19 PM
--- NOTE | 2020-07-30 18:42 | CT Scan Report ---
CT head/brain wo con CLINICAL HISTORY: Head pain status post trauma COMPARISON STUDY: No previous studies for comparison. TECHNIQUE: Axial CT of the brain is performed from the vertex to the skull base. IV contrast was not administered for this examination. A dose lowering technique was utilized adhering to the principles of ALARA. CT DOSE: FINDINGS: No intra or extra-axial mass lesions are visualized. There is no CT evidence of acute cortical infarc tion. There is no evidence of midline shift. There is no acute hemorrhage. No calvarial fractures ar e visualized. There are patchy white matter hypodensities likely on a small vessel basis. There is no evidence of pathologic ventricular dilatation. There is no evidence of acute sinusitis IMPRESSION: No acute intracranial findings ACT 112: Negative or not required by law. Electronically signed by: Keon Morales M.D. 07/30/2020 6:40 PM
--- NOTE | 2020-07-30 18:45 | CT Scan Report ---
CT OF THE CERVICAL SPINE CLINICAL HISTORY: Neck pain status post trauma COMPARISON STUDY: July 27, 2020 CT DOSE: 1130.29 mGy.cm TECHNIQUE: CT scan of the cervical spine was performed from the skull base to the thoracic inlet. Mery ges are reviewed in the axial, sagittal, and coronal planes. IV contrast was not administered for thi s examination. A dose lowering technique was utilized adhering to the principles of ALARA. FINDINGS: The visualized portions of the lung apices reveal no evidence of pneumothorax. There is soft tissue gas within the neck, likely secondary to recent surgery. There is moderate preve rtebral soft tissue edema, also likely secondary to recent surgery. The prevertebral soft tissues are normal. No fractures or subluxations are visualized. There are multilevel degenerative changes. There are postsurgical changes of an anterior C4-5 discect ainsley and interbody fusion. IMPRESSION: 1. Postsurgical changes of an anterior C4-5 discectomy and interbody fusion 2. No acute fractures or traumatic subluxations 3. Soft tissue gas within the neck, likely related to recent surgery 4. Moderate prevertebral soft tissue edema, also likely related to recent surgery ACT 112: Negative or not required by law. Electronically signed by: Keon Morales M.D. 07/30/2020 6:44 PM
[2020-07-30] MEDS: IRON SUCROSE 200 MG in 0.9 % SODIUM CHLORIDE 100 ML IV SCH (19:29)
--- NOTE | 2020-07-30 19:50 | Orthopedic Progress Note ---
Date of Service July 30, 2020 Assessment & Plan (1) Status post spinal surgery: (2) Fall: - monitor neurological status q1h given recent fall - may mobilize with brace; brace to be worn at all times - return to protocol for acute post-op patient given higher risk of hematoma with fall -> remote oximetry overnight and frequent checks of neck - plan communicated to daytime program aide group work and Anticipated Discharge Date Admission Date: July 29, 2020 Subjective Called re: patient having a fall As per RN and patient, fell in restroom when glasses fell and he went to pick them up brace was worn at the time hit right forehead denies new numbness/weakness/headache/double vision no new pain previously noted pain left shoulder and cervical spine no swallowing, breathing difficulties Physical Exam Physical Exam: neurologically unchanged upper and lower extremity with previously noted 4+/5 motor left C5 biceps, 2/5 left shoulder abduction bruising right upper eyelid full EOM with no diplopia. CN III, IV, , VII, X, XI intact on exam no tenderness thoracic/lumbar spine no distention neck Results & Data ([facility]) Vital Signs (Past 12 Hours) Vital Signs Temp Pulse Pulse Pulse Resp BP Pulse Ox 07/30/20 17:43 36.5 C 100 H 18 159/95 H 92 07/30/20 15:28 78 18 95 07/30/20 13:33 96 07/30/20 13:10 36.8 C 90 16 138/85 97 07/30/20 11:10 37.2 C 88 18 148/80 H 96 07/30/20 09:10 36.5 C 92 H 18 133/84 96 07/30/20 08:02 [address] cervical reported as "1. Postsurgical changes of an anterior C4-5 discectomy and interbody fusion 2. No acute fractures or traumatic subluxations 3. Soft tissue gas within the neck, likely related to recent surgery 4. Moderate prevertebral soft tissue edema, also likely related to recent surgery" x-ray cervical spine - no change in alignment of hardware CT head reported as "No acute intracranial findings" PG Care Time/CCT Total # of Minutes Spent Total Time Spent with Patient: Total time spent is greater than 50% in coordination of care (as documented) at patient's floor/unit and/or counseling patient: Coding Level of Care Code None Diagnoses Status post spinal surgery Z98.890 Fall W19.XXXA
[2020-07-30] MEDS: DOCUSATE SODIUM/SENNA 50/8.6MG TAB PO SCH (21:39)
[2020-07-30] MEDS: ACETAMINOPHEN 1,000 MG/100 ML VIAL IV PRN (22:56)
[2020-07-31] MEDS: dexAMETHasone 8 MG in SYRINGE 0 ML IV SCH (01:23)
[2020-07-31] MEDS: LACTATED RINGER'S 1,000 ML IV SCH (03:18)
[2020-07-31] MEDS: POLYETHYLENE (MIRALAX) 17 GM PACK PO SCH ×2 (05:01→14:07)
[2020-07-31] MEDS: CYCLOBENZAPRINE HCL 10 MG TAB PO SCH ×3 (09:54→21:11)
[2020-07-31] MEDS: hydroCHLOROthiazide 25 MG TAB PO SCH (09:55)
[2020-07-31] MEDS: HYDROXYCHLOROQUINE SULFATE 200 MG TAB PO SCH ×2 (09:56→21:11)
[2020-07-31] MEDS: MULTIVITAMIN TAB PO SCH (09:56)
[2020-07-31] MEDS: CHOLECALCIFEROL 1,000 UNITS 25 MCG TAB PO SCH (09:57)
[2020-07-31] MEDS: GABAPENTIN 300 MG CAP PO SCH ×2 (09:57→21:11)
[2020-07-31] MEDS: ATORVASTATIN 10 MG TAB PO SCH (09:57)
[2020-07-31] MEDS: POTASSIUM CHLORIDE 10 MEQ TABCR PO SCH ×2 (10:02→21:16)
[2020-07-31] MEDS: IRON SUCROSE 200 MG in 0.9 % SODIUM CHLORIDE 100 ML IV SCH (10:09)
[2020-07-31] MEDS ORDERED: bisacodyL 10 MG SUPP PR PRN (11:23)
--- NOTE | 2020-07-31 12:42 | Orthopedic Progress Note ---
Date of Service July 31, 2020 Assessment & Plan (1) Status post spinal surgery: progress oral intake as able repeat mobilization with PT in PM patient interested in discharge in PM. Offered option to stay till tomorrow AM for further monitoring of mobility and oral intake. If patient mobilizes well with PT in PM and diet progression successful, will consider PM discharge if patient wishes (2) Fall: - no repeat incidents - mobilized well with PT this AM - reinforced fall risk and avoidance of dangerous activities in post-op area for him such as bending down to hot die picker objects from the ground Admission and Anticipated Discharge Date Admission Date: July 29, 2020 Subjective no headache, no double vision no new numbness/weakness improved hoarseness improved dysphagia. Drinking well/eating well non-solid food. being progressed to solid foods today no breathing difficulties mobilize well with PT this AM Review of Systems Review of Systems: All systems reviewed & are unremarkable except as noted in HPI & below Physical Exam Physical Exam: dressing: clean, dry intact drain: removed neuro: grossly intact motor upper extremity except left C5 4+/5 biceps, 2+/5 deltoid light touch intact upper extremity neck soft, non-distended Results & Data ([facility]) Vital Signs (Past 12 Hours) Vital Signs Temp Pulse Pulse Resp BP Pulse Ox 07/31/20 12:15 36.6 C 84 18 160/97 H 96 07/31/20 12:01 74 20 97 07/31/20 10:47 36.5 C 86 18 159/90 H 97 07/31/20 10:08 36.8 C 92 H 18 148/82 H 98 07/31/20 08:13 74 19 98 07/31/20 05:45 36.4 C L 81 20 161/96 H 96 07/31/20 03:00 75 16 95 Diagnostic Findings . PG Care Time/CCT Total # of Minutes Spent Total Time Spent with Patient: Total time spent is greater than 50% in coordination of care (as documented) at patient's floor/unit and/or counseling patient: Coding Level of Care Code None Diagnoses Status post spinal surgery Z98.890 Fall W19.XXXA
[2020-07-31] MEDS: DOCUSATE SODIUM/SENNA 50/8.6MG TAB PO SCH (19:37)
[2020-07-31] MEDS: oxyCODONE HCL IR 5 MG TAB (IMMEDIATE RELEASE) PO PRN (19:40)
[2020-08-01] MEDS: CYCLOBENZAPRINE HCL 10 MG TAB PO SCH (09:07)
[2020-08-01] MEDS: HYDROXYCHLOROQUINE SULFATE 200 MG TAB PO SCH (09:07)
[2020-08-01] MEDS: POTASSIUM CHLORIDE 10 MEQ TABCR PO SCH (09:08)
[2020-08-01] MEDS: GABAPENTIN 300 MG CAP PO SCH (09:08)
[2020-08-01] MEDS: hydroCHLOROthiazide 25 MG TAB PO SCH (09:08)
[2020-08-01] MEDS: CHOLECALCIFEROL 1,000 UNITS 25 MCG TAB PO SCH (09:08)
[2020-08-01] MEDS: ATORVASTATIN 10 MG TAB PO SCH (09:09)
[2020-08-01] MEDS: MULTIVITAMIN TAB PO SCH (09:09)
--- NOTE | 2020-08-01 09:41 | Orthopedic Progress Note ---
Date of Service August 01, 2020 Assessment & Plan (1) Status post spinal surgery: d/c home today patient understands that dysphagia after ACDF procedure can take up to 6 months to resolve, and that the combination of his age, his collar, his recent fall, and his ACDF procedure puts him at higher risk of aspiration. Re-inforced need to progress diet as tolerated and to be careful with items that he finds difficult to swallow called and discussed discharge plan and answered questions. Admission and Anticipated Discharge Date Admission Date: July 29, 2020 Subjective improved swallowing, tolerated entire breakfast this AM almost resolved hoarsenss of voice feels left shoulder strong, no new neurological symptoms mobilizing well, cleared by PT for discharge Physical Exam Physical Exam: dressing: clean, dry intact drain: removed neuro: grossly intact motor upper extremity except left C5 4+/5 biceps, 2+/5 deltoid light touch intact upper extremity neck soft, non-distended Results & Data ([facility]) Vital Signs (Past 12 Hours) Vital Signs Temp Pulse Pulse Resp BP BP Pulse Ox 08/01/20 07:46 75 17 94 08/01/20 06:33 36.4 C L 71 16 146/81 H 98 08/01/20 03:21 77 16 96 08/01/20 00:09 147/76 H 07/31/20 23:33 36.4 C L 63 16 168/96 H 99 07/31/20 23:09 81 16 95 PG Care Time/CCT Total # of Minutes Spent Total Time Spent with Patient: Total time spent is greater than 50% in coordination of care (as documented) at patient's floor/unit and/or counseling patient: Coding Level of Care Code None Diagnoses Status post spinal surgery Z98.890 CPT Codes Post Operative Follow-Up - 59178 ([id number])
--- NOTE | 2020-08-01 09:48 | Discharge Summary ---
Date of Service August 01, 2020 Principal Diagnosis cervical radiculopathy Discharge Data Allergies Allergy/AdvReac Type Severity Reaction Status Date / Time lisinopril AdvReac Mild cough Verified 07/31/20 14:54 Consultations 07/29/20 11:30 Consult Hospitalist Routine Procedures Performed Operation Date: 07/29/20 07:15 Actual Procedures p C4-C5 Anterior Cervical Discectomy and Fusion, Allograft, Spinal Cord Monitoring - Attila Corrales MD Ordered Studies 07/30/20 18:12 CT cervical spine wo con Stat 07/30/20 18:[address] [CT head/brain wo con] Stat Hospital Course (1) Status post spinal surgery: Underwent the above mentioned procedure. Patient tolerated procedure well. Sent to recovery and then floor post-op. Pain was well controlled. Patient had hoarseness that resolved by time of discharge. Swallowing difficulties improved by time of discharge. Suffered a fall from standing height as a result of slip in the restroom with negative CT head and no new neurological deficit. Maintained in hospital after fall for monitoring and improved mobility and cleared for discharge by PT. At time of discharge, he was tolerating his food intake well and understood instructions for gradual advancement of diet and avoidance of foods that cause him to cough and might result in aspiration. Drain removed before discharge. Biceps strength and deltoid strength improved on left side compared to pre-op status (4+/5 biceps, 2+/5 deltoids at time of dc). Verbal discharge and follow-up instructions were given. Total Time Total Time Spent Total Time Spent (In Minutes): 30min Discharge Plan Discharge Items Patient Disposition: Home - Self-Care Reason For Visit: Cervical Radiculopathy Discharge Diagnosis: CERVICAL RADICULOPATHY Condition on Discharge: Good Activity: Per Instructions section Non-emergency contact: Surgeon Call non-emergency contact if: you have any medication questions, your symptoms worsen, your pain is not controlled, your pain is worsening, your pain is unusual for you, your pain is concerning for you, you have a fever, your rectal temperature is above 100.4, your temperature is above 101, your temperature is above 101.5, your wound has increased redness, your wound has increased drainage and your wound pain has increased Follow-up/Referrals: Phil Flores DO [Primary Care Provider] - Attila Corrales MD [Physician] - Diet: Regular Diet Comment: progress slowly as tolerated and extra care re: aspiration Addtl Attending Provider Instructions: What to expect You've had surgery, the first step toward the goals of decreasing neck and/or arm pain, and stopping symptoms of spinal cord compression from getting worse. Now it's time to focus on healing. By following these tips, you will set yourself up for a successful outcome after surgery. Top 4 things to know 1. Pain in the back of the neck and between the shoulder blades is common after ACDF surgery. It also is normal to have some swallowing difficulty. These usually get better over the next few weeks. If you have trouble breathing, call 911 or go to an emergency room immediately. 2. Do not use nicotine for at least three months. Nicotine will slow down your healing. 3. Avoid taking anti-inflammatory medications (NSAIDs) for six to 12 weeks or until your surgeon tells you it's safe to use them. NSAIDs include ibuprofen (Motrin, Advib), naproxen (Aleve, Naprosyn), meloxicam (Mobic), Celebrex and diclofenac. 4. In some cases, you do not need a collar after surgery. If your surgeon gave you one, you should wear it as directed until your first follow-up appointment. Avoid excessive bending and twisting of your neck after surgery. Your surgeon will decide when your collar can come off. Breathing If you have any trouble breathing or have excessive swelling in your neck, call 911 or go to an emergency room immediately. Pain and weakness Neck pain, pain between the shoulder blades and a funny feeling when you swallow are normal after ACDF. These should get better over the next few weeks. Numbness, tingling and weakness that you had before surgery may take time to improve. Your collar If you were given a collar to wear, the goal of it is to keep your chin up and away from your chest. Your chin needs to be on top of the collar, not down in the collar. Wear your collar until your first follow-up appointment after surgery. Given your fall in hospital, please wear your collar at all times. Taking care of your incision You can take your dressing off when you get home from the hospital. Underneath the dressing you will have adhesive wound closures (Steri-strips) over your incision when you come home from the hospital. These will fall off on their own within 14 days. If they have not fallen off after 14 days, you can remove them. If your incision has no drainage, it can be left uncovered after three days. Showering You can take a shower three days after surgery. Given your fall in hospital, please wear your collar while showering and keep it dry as able Avoid taking tub baths, swimming and going in hot tubs until the incision is completely healed (four to six weeks). Taking medication Do not take anti-inflammatory medications (NSAIDS) for at least three months after surgery. These drugs can interfere with how you heal. NSAIDs include ibuprofen, Advil, Aleve, naproxen, Naprosyn, Mobic, meloxicam, Celebrex, diclofenac. If you need refills on your prescriptions, contact our office at least two days before you are out of pills so we have sufficient time to process your request. Refill requests on Saturday afternoons and holidays likely will be addressed on the next day. Start weaning yourself from pain medications as soon as you are able. Remember, pain is a natural part of the healing process. The goal is not to eliminate all pain but to keep you comfortable as you heal. Pain medications should be used only for a short period of time. Before taking Tylenol (acetaminophen), be aware that your pain medication probably has acetaminophen in it. Taking additional Tylenol or acetaminophen can put you over the daily recommended 3,000 milligrams, which can harm your liver. If you are taking a muscle relaxer, one of the side effects is drowsiness. If you feel too drowsy to safely get up and move around, take the muscle relaxer less often. Do not use tobacco products If you had been a smoker or used tobacco, you were required to stop before surgery You've come this far, so why not quit for good. If you cannot do so, you must not use tobacco products for at least three months. Nicotine will keep you from properly healing Be active, but no lifting We want you to be active as soon as you get home from the hospital. Get up and walk often. If you go up and down stairs, make sure you hold onto the railing and have someone with you. Avoid bending and twisting your neck as much as you can, and do not lift anything over 10 pounds until your surgeon says it's OK. And no driving You cannot drive until you are no longer taking narcotic pain medications or muscle relaxers and you can move well enough to be safe behind the wheel. Most patients can begin driving after the first postoperative appointment. Your surgeon will let you know when you can start driving Eating Ice and Popsicles can help relieve a sore throat. Eat soft foods that are easy to swallow. Take small bites and chew your food well. You can begin eating other foods gradually as you start to feel better. Constipation and bloating Constipation is a common side effect of taking narcotic pain medication and a good reason to begin tapering yourself off of pain medication as soon as you can. Drink lots of fluids, be active and eat foods high in fiber to help relieve constipation If constipation is bothering you, a stool softener or laxative may help. Try one of the following, and always follow the instructions: Milk of Magnesia, MiraLAX, Dulcolax suppository. Fleet enema, magnesium citrate. When is it an emergency? If you have any of the following symptoms, call 911 or go to an emergency room right away: Trouble breathing Chest pain Excessive neck swelling Significant new weakness since your surgery If you have any other concern, call our office at [phone] before going to an emergency room. In most cases we can help you or get you an appointment quickly. Pending Studies at Discharge: No Stand-Alone Forms: [facility] Medications and DC Order Prescriptions: New cyclobenzaprine 10 mg Tablet 10 mg PO TID Qty: 42 RF: 0 gabapentin 300 mg Capsule 300 mg PO BID Qty: 28 RF: 0 oxycodone-acetaminophen [Percocet] 5-325 mg Tablet 1 tab PO Q4H PRN (Reason: pain) Qty: 48 RF: 0 Continued amoxicillin 500 mg capsule 2,000 mg PO ONCE Qty: 4 RF: 2 potassium chloride 10 mEq tablet extended release See Rx Instructions .ROUTE .COMPLEX Qty: 180 RF: 3 atorvastatin 10 mg tablet See Rx Instructions .ROUTE .COMPLEX Qty: 90 RF: 1 hydrochlorothiazide 12.5 mg tablet 12.5 mg PO DAILY Qty: 90 RF: 3 multivitamin [Daily Multi-Vitamin] tablet 1 tab PO QAM RF: 0 acetaminophen 500 mg tablet 1,000 mg PO Q8H PRN (Reason: Pain) RF: 0 hydroxychloroquine 200 mg tablet 200 mg PO BID Qty: 180 RF: 0 cholecalciferol (vitamin D3) 1,000 unit capsule 1,000 units PO DAILY Qty: 30 RF: 0 Discontinued oxycodone-acetaminophen [Percocet] 5-325 mg tablet 1 tab PO Q4H PRN (Reason: pain) Qty: 30 RF: 0 Discharge Orders: Discharge Order (Routine); Ordered 08/01/20 Ordered By: Attila Corrales Admission Data Admit Date/Time: 07/29/20 11:29 Attending Provider: Attila Corrales Admit Provider: Attila Corrales Primary Care Provider: Phil Flores Other Providers: Gerson Winter ; Dixie Delgadillo ; Godwin Lea ; Mukund Sandhu ; Naomi Villatoro ; Félix Valera ; Sim Souza ; Jeremy Heard ; Amelia Crawford ; Tara Ku ; Timoteo Jorge ; Yudelka Livingston ; Kelly Summers ; Freddie Krishnamurthy ; Arpan Milan ; Araceli West ; Marvin Mayer ; Ish Rogers ; Andres Barrios ; Damon Graham ; Godwin Pacheco. ; Fabián Shea ; Re Foley ; Guilherme Mason ; Zachery Corona. Other Interventions: Discharge Summary Assessment (RN) Last Done: 08/01/20 09:39 Coding Level of Care Code D/C Day Management <30 mins Diagnoses Status post spinal surgery Z98.890 CPT Codes Post Operative Follow-Up - 12992 ([id number])
== END 2020-08-01 10:45 | disposition home or self-care (01) ==
LOC: PAT 05:38 → 3E 05:38